=== PATIENT | female | born 1970 | race Caucasian/White ===

== ENCOUNTER → 2019-03-12 | Emergency (ER) | payer OTHER ==
[~2019-03-12] VITALS: Ht 170.2 cm; Wt 63.0 kg
[~2019-03-12] MED LIST: ACETAMINOPHEN ES 500 MG TABLET ONE; ACETAMINOPHEN ES 500 MG TABLET PO ONE; LIDOCAINE 1%-EPI 1:100,000 20 ML VIAL ONE; LIDOCAINE 1%-EPI 1:100,000 50 ML VIAL IJ ONE; MORPHINE SULFATE INJ 2 MG/ML DISP.SYRIN IM ONE; TDAP [DIPH/PERTUSSIS/TET] 0.5 ML VIAL IM ONE
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
--- NOTE | 2019-03-12 11:08 | NUR ---
CALLED [facility] TO HAVE IMAGE READ
[2019-03-12 11:53] VITALS: BP 120/70
--- NOTE | 2019-03-12 11:57 | NUR ---
DC HOME INSTRUCTION GIVEN AGREES TO CALL PMD IN 2 DAYS VERBALIZED UNDERSTNDING AGREES TO FOLLOW UP THE WOUND CARE IN 2 DAYS VERBALIZED UNDESRTNDING
== END | disposition home or self-care (01) ==
LOC: ER 09:48
DX: S01.01XA Laceration without foreign body of scalp, initial encounter (principal); G35 Multiple sclerosis; I25.2 Old myocardial infarction; R56.9 Unspecified convulsions; F17.200 Nicotine dependence, unspecified, uncomplicated; W18.09XA Striking against other object with subsequent fall, initial encounter; Y93.01 Activity, walking, marching and hiking; Y92.89 Other specified places as the place of occurrence of the external cause; Y99.8 Other external cause status
CPT/HCPCS: 12004; 70450; 90471; 90715; 99284; A6403; J3490 ×2; J7030

== ENCOUNTER 2019-03-14 11:34 | Emergency (ER) | payer OTHER ==
[~2019-03-14] VITALS: Ht 170.2 cm; Wt 60.8 kg
--- NOTE | 2019-03-14 12:24 | NUR ---
Patient discharged to home in stable condition. Written and verbal after care instructions given. Patient verbalizes understanding of instruction.
== END 2019-03-14 12:24 | disposition home or self-care (01) ==
LOC: ER 11:34
DX: S01.01XD Laceration without foreign body of scalp, subsequent encounter (principal); G35 Multiple sclerosis; F17.200 Nicotine dependence, unspecified, uncomplicated; W01.0XXD Fall on same level from slipping, tripping and stumbling without subsequent striking against object, subsequent encounter

== ENCOUNTER 2019-03-19 10:02 | Emergency (ER) | payer OTHER ==
[~2019-03-19] VITALS: Ht 172.7 cm; Wt 60.8 kg
[2019-03-19 10:08] VITALS: BP 125/75
--- NOTE | 2019-03-19 10:15 | NUR ---
AT BEDSIDE FOR EVAL.
--- NOTE | 2019-03-19 10:48 | NUR ---
SUTURE REMOVAL DONE. PT TOLERATED PROCEDURE WELL D/C HOME IN STABLE CONDITION.
== END 2019-03-19 10:50 | disposition home or self-care (01) ==
LOC: ER 10:02
DX: Z48.01 Encounter for change or removal of surgical wound dressing (principal); R56.9 Unspecified convulsions; G35 Multiple sclerosis; F17.200 Nicotine dependence, unspecified, uncomplicated